=== PATIENT | male | born 1995 | race Caucasian/White ===

== ENCOUNTER → 2022-07-18 07:58 | Outpatient (BNVA) | payer MEDICARE, MEDICAID, SELFPAY | PROVIDERS: PCP Family Medicine; Visit Provider Podiatrist Foot & Ankle Surgery | DX: G60.0 Hereditary motor and sensory neuropathy (principal); L84 Corns and callosities | CPT/HCPCS: 11055; 99213 ==

== ENCOUNTER → 2022-12-31 10:27 | Outpatient (BNVA) | payer MEDICARE, SELFPAY | PROVIDERS: PCP Family Medicine; Visit Provider Nurse Practitioner Family | DX: M25.511 Pain in right shoulder (principal); S43.004A Unspecified dislocation of right shoulder joint, initial encounter; W18.09XA Striking against other object with subsequent fall, initial encounter | CPT/HCPCS: 73030 ==

== ENCOUNTER → 2023-01-07 09:22 | Outpatient (BNVA) | payer MEDICARE, MEDICAID, SELFPAY | PROVIDERS: PCP Family Medicine; Referring Provider Nurse Practitioner Family; Visit Provider Specialist | DX: S43.101A Unspecified dislocation of right acromioclavicular joint, initial encounter (principal); W18.09XA Striking against other object with subsequent fall, initial encounter | CPT/HCPCS: 99204 ==

== ENCOUNTER → 2023-01-22 09:50 | Outpatient (BNVA) | payer MEDICARE, MEDICAID, SELFPAY | PROVIDERS: PCP Family Medicine; Visit Provider Podiatrist Foot & Ankle Surgery | DX: L02.426 Furuncle of left lower limb; G60.0 Hereditary motor and sensory neuropathy; M79.671 Pain in right foot; L84 Corns and callosities | CPT/HCPCS: 99213 ==

== ENCOUNTER → 2023-02-12 09:31 | Outpatient (BNVA) | payer MEDICARE, MEDICAID, SELFPAY | PROVIDERS: PCP Family Medicine; Visit Provider Podiatrist Foot & Ankle Surgery | DX: L02.426 Furuncle of left lower limb (principal); L97.512 Non-pressure chronic ulcer of other part of right foot with fat layer exposed; G60.0 Hereditary motor and sensory neuropathy; L84 Corns and callosities | CPT/HCPCS: 11042 ==

== ENCOUNTER → 2023-04-01 09:02 | Outpatient (BNVA) | payer MEDICARE, MEDICAID, SELFPAY | PROVIDERS: PCP Family Medicine; Visit Provider Podiatrist Foot & Ankle Surgery | DX: L84 Corns and callosities (principal); L97.512 Non-pressure chronic ulcer of other part of right foot with fat layer exposed; G60.0 Hereditary motor and sensory neuropathy | CPT/HCPCS: 99213 ==

== ENCOUNTER 2023-04-30 10:08 | Outpatient (CLI) | payer MEDICARE, MEDICAID, SELFPAY | END 2023-04-30 10:09 | disposition home or self-care (01) | LOC: SPT 10:09 | PROVIDERS: PCP Family Medicine; Visit Provider Podiatrist Foot & Ankle Surgery | DX: Z46.89 Encounter for fitting and adjustment of other specified devices (principal); L97.512 Non-pressure chronic ulcer of other part of right foot with fat layer exposed; L84 Corns and callosities; G60.0 Hereditary motor and sensory neuropathy | CPT/HCPCS: 97760; 99213; L4361 ==

== ENCOUNTER → 2023-05-09 08:06 | Outpatient (BNVA) | payer MEDICARE, MEDICAID, SELFPAY | PROVIDERS: PCP Family Medicine; Visit Provider Podiatrist Foot & Ankle Surgery | DX: L84 Corns and callosities (principal); L97.512 Non-pressure chronic ulcer of other part of right foot with fat layer exposed; G60.0 Hereditary motor and sensory neuropathy; M79.671 Pain in right foot | CPT/HCPCS: 99213 ==

== ENCOUNTER → 2023-06-13 15:08 | Outpatient (BNVA) | payer MEDICARE, MEDICAID, SELFPAY | PROVIDERS: PCP Family Medicine; Visit Provider Podiatrist Foot & Ankle Surgery | DX: L97.512 Non-pressure chronic ulcer of other part of right foot with fat layer exposed (principal); L84 Corns and callosities; G60.0 Hereditary motor and sensory neuropathy | CPT/HCPCS: 11042; A6219 ==

== ENCOUNTER → 2023-07-02 09:23 | Outpatient (BNVA) | payer MEDICARE, MEDICAID, SELFPAY | PROVIDERS: PCP Family Medicine; Visit Provider Podiatrist Foot & Ankle Surgery | DX: L97.512 Non-pressure chronic ulcer of other part of right foot with fat layer exposed (principal); L84 Corns and callosities; G60.0 Hereditary motor and sensory neuropathy | CPT/HCPCS: 99213 ==

== ENCOUNTER → 2023-07-08 13:06 | Outpatient (BNVA) | payer MEDICARE, MEDICAID, SELFPAY | PROVIDERS: PCP Family Medicine; Visit Provider Nurse Practitioner Family | DX: I96 Gangrene, not elsewhere classified (principal); L97.512 Non-pressure chronic ulcer of other part of right foot with fat layer exposed; L97.422 Non-pressure chronic ulcer of left heel and midfoot with fat layer exposed | CPT/HCPCS: 11042; 99203 ==

== ENCOUNTER → 2023-07-15 13:28 | Outpatient (BNVA) | payer MEDICARE, MEDICAID, SELFPAY | PROVIDERS: PCP Family Medicine; Visit Provider Nurse Practitioner Family | DX: I96 Gangrene, not elsewhere classified; L97.425 Non-pressure chronic ulcer of left heel and midfoot with muscle involvement without evidence of necrosis; L97.412 Non-pressure chronic ulcer of right heel and midfoot with fat layer exposed | CPT/HCPCS: 11042; 11043; 87070; 87077; 87176; 87186; 87205; 99212; A6251 ==

== ENCOUNTER → 2023-07-22 13:34 | Outpatient (BNVA) | payer MEDICARE, MEDICAID, SELFPAY | PROVIDERS: PCP Family Medicine; Visit Provider Nurse Practitioner Family | DX: I96 Gangrene, not elsewhere classified (principal); L97.411 Non-pressure chronic ulcer of right heel and midfoot limited to breakdown of skin; L97.425 Non-pressure chronic ulcer of left heel and midfoot with muscle involvement without evidence of necrosis | CPT/HCPCS: 11043; 97597 ==

== ENCOUNTER → 2023-07-29 13:04 | Outpatient (BNVA) | payer MEDICARE, MEDICAID, SELFPAY | PROVIDERS: PCP Family Medicine; Visit Provider Nurse Practitioner Family | DX: I96 Gangrene, not elsewhere classified (principal); L97.422 Non-pressure chronic ulcer of left heel and midfoot with fat layer exposed; Z09 Encounter for follow-up examination after completed treatment for conditions other than malignant neoplasm | CPT/HCPCS: 11043; A6210; A6212 ==

== ENCOUNTER → 2023-08-26 13:02 | Outpatient (BNVA) | payer MEDICARE, MEDICAID, SELFPAY | PROVIDERS: PCP Family Medicine; Visit Provider Nurse Practitioner Family | DX: I96 Gangrene, not elsewhere classified (principal); L97.412 Non-pressure chronic ulcer of right heel and midfoot with fat layer exposed; L97.422 Non-pressure chronic ulcer of left heel and midfoot with fat layer exposed; G90.50 Complex regional pain syndrome I, unspecified | CPT/HCPCS: 11042; A6210 ==

== ENCOUNTER → 2023-09-12 08:06 | Outpatient (BNVA) | payer MEDICARE, MEDICAID, SELFPAY | PROVIDERS: PCP Family Medicine; Visit Provider Podiatrist Foot & Ankle Surgery | DX: L84 Corns and callosities (principal); G60.0 Hereditary motor and sensory neuropathy | CPT/HCPCS: 99213 ==

== ENCOUNTER → 2023-09-16 12:57 | Outpatient (BNVA) | payer MEDICARE, MEDICAID, SELFPAY | PROVIDERS: PCP Family Medicine; Visit Provider Nurse Practitioner Family | DX: I96 Gangrene, not elsewhere classified (principal); L97.421 Non-pressure chronic ulcer of left heel and midfoot limited to breakdown of skin; Z09 Encounter for follow-up examination after completed treatment for conditions other than malignant neoplasm | CPT/HCPCS: 97597; A6021 ==

== ENCOUNTER → 2023-09-23 13:01 | Outpatient (BNVA) | payer MEDICARE, MEDICAID, SELFPAY | PROVIDERS: PCP Family Medicine; Visit Provider Nurse Practitioner Family | DX: L97.422 Non-pressure chronic ulcer of left heel and midfoot with fat layer exposed (principal) | CPT/HCPCS: 11042; A6210 ==

== ENCOUNTER → 2023-09-30 12:50 | Outpatient (BNVA) | payer MEDICARE, MEDICAID, SELFPAY | PROVIDERS: PCP Family Medicine; Visit Provider Nurse Practitioner Family | DX: L97.425 Non-pressure chronic ulcer of left heel and midfoot with muscle involvement without evidence of necrosis (principal) | CPT/HCPCS: 11043; A6210 ==

== ENCOUNTER → 2023-10-14 12:55 | Outpatient (BNVA) | payer MEDICARE, MEDICAID, SELFPAY | PROVIDERS: PCP Family Medicine; Visit Provider Nurse Practitioner Family | DX: I96 Gangrene, not elsewhere classified (principal); L97.421 Non-pressure chronic ulcer of left heel and midfoot limited to breakdown of skin | CPT/HCPCS: 97597; A6210 ==

== ENCOUNTER → 2023-10-21 12:51 | Outpatient (BNVA) | payer MEDICARE, MEDICAID, SELFPAY | PROVIDERS: PCP Family Medicine; Visit Provider Nurse Practitioner Family | DX: L97.425 Non-pressure chronic ulcer of left heel and midfoot with muscle involvement without evidence of necrosis (principal) | CPT/HCPCS: 11043; A6210 ==

== ENCOUNTER → 2023-10-28 13:39 | Outpatient (BNVA) | payer MEDICARE, MEDICAID, SELFPAY | PROVIDERS: PCP Family Medicine; Visit Provider Nurse Practitioner Family | DX: L97.421 Non-pressure chronic ulcer of left heel and midfoot limited to breakdown of skin (principal); G90.50 Complex regional pain syndrome I, unspecified | CPT/HCPCS: 97597; A6210 ==

== ENCOUNTER → 2023-11-04 13:06 | Outpatient (BNVA) | payer MEDICARE, MEDICAID, SELFPAY | PROVIDERS: PCP Family Medicine; Visit Provider Nurse Practitioner Family | DX: L97.321 Non-pressure chronic ulcer of left ankle limited to breakdown of skin (principal) | CPT/HCPCS: 97597; A6210 ==

== ENCOUNTER → 2023-11-11 10:19 | Outpatient (BNVA) | payer MEDICARE, MEDICAID, SELFPAY | PROVIDERS: PCP Family Medicine; Visit Provider Nurse Practitioner Family | DX: L97.422 Non-pressure chronic ulcer of left heel and midfoot with fat layer exposed (principal) | CPT/HCPCS: 15271; A6206; A6250 ==

== ENCOUNTER → 2023-11-18 10:49 | Outpatient (BNVA) | payer MEDICARE, MEDICAID, SELFPAY | PROVIDERS: PCP Family Medicine; Visit Provider Thoracic Surgery (Cardiothoracic Vascular Surgery) | DX: I96 Gangrene, not elsewhere classified (principal); L97.421 Non-pressure chronic ulcer of left heel and midfoot limited to breakdown of skin | CPT/HCPCS: 15275; Q4186 ==

== ENCOUNTER → 2023-12-02 11:12 | Outpatient (BNVA) | payer MEDICARE, MEDICAID, SELFPAY | PROVIDERS: PCP Family Medicine; Visit Provider Thoracic Surgery (Cardiothoracic Vascular Surgery) | DX: L97.421 Non-pressure chronic ulcer of left heel and midfoot limited to breakdown of skin (principal); G62.9 Polyneuropathy, unspecified | CPT/HCPCS: 97597 ==

== ENCOUNTER → 2023-12-09 10:38 | Outpatient (BNVA) | payer MEDICARE, MEDICAID, SELFPAY | PROVIDERS: PCP Family Medicine; Visit Provider Thoracic Surgery (Cardiothoracic Vascular Surgery) | DX: L97.421 Non-pressure chronic ulcer of left heel and midfoot limited to breakdown of skin (principal); G62.9 Polyneuropathy, unspecified | CPT/HCPCS: 97597 ==

== ENCOUNTER → 2023-12-16 10:14 | Outpatient (BNVA) | payer MEDICARE, MEDICAID, SELFPAY | PROVIDERS: PCP Family Medicine; Visit Provider Thoracic Surgery (Cardiothoracic Vascular Surgery) | DX: Z09 Encounter for follow-up examination after completed treatment for conditions other than malignant neoplasm (principal); Z87.2 Personal history of diseases of the skin and subcutaneous tissue | CPT/HCPCS: 99212 ==

== ENCOUNTER → 2024-01-16 07:54 | Outpatient (BNVA) | payer MEDICARE, MEDICAID, SELFPAY | PROVIDERS: PCP Family Medicine; Visit Provider Thoracic Surgery (Cardiothoracic Vascular Surgery) | DX: Z09 Encounter for follow-up examination after completed treatment for conditions other than malignant neoplasm (principal); Z87.2 Personal history of diseases of the skin and subcutaneous tissue | CPT/HCPCS: 99212 ==

== ENCOUNTER → 2024-04-15 07:54 | Outpatient (BNVA) | payer MEDICARE, MEDICAID, SELFPAY | PROVIDERS: PCP Family Medicine; Visit Provider Thoracic Surgery (Cardiothoracic Vascular Surgery) | DX: Z09 Encounter for follow-up examination after completed treatment for conditions other than malignant neoplasm (principal); Z87.2 Personal history of diseases of the skin and subcutaneous tissue | CPT/HCPCS: 99213 ==

== ENCOUNTER → 2024-04-29 11:07 | Outpatient (BNVA) | payer MEDICARE, MEDICAID, SELFPAY | PROVIDERS: PCP Family Medicine; Visit Provider Podiatrist Foot & Ankle Surgery | DX: M79.671 Pain in right foot (principal); L02.426 Furuncle of left lower limb; M79.89 Other specified soft tissue disorders; L84 Corns and callosities; G60.0 Hereditary motor and sensory neuropathy | CPT/HCPCS: 73630; 99213 ==

== ENCOUNTER 2024-05-15 10:38 | Outpatient (CLI) | payer OTHER, MEDICAID, SELFPAY ==
--- NOTE | 2024-05-15 11:00 | MR_ITS ---
WS: [id number] MRI LEFT FOOT WITH AND WITHOUT CONTRAST. COMPARISON: Radiograph 04/29/2024 Multiplanar, multisequence imaging is performed with and without contrast. MultiHance 20 mL. Prior screw fixation of the first IP joint. Palpable marker corresponds to a well-circumscribed cystic mass on the T1 and T2 sequences. There is peripheral enhancement of the mass. Lobulated mass extends over a length of 2.6 cm. Maximum transvers e diameter 1.2 cm. Mass is inseparable and extends between the extensor digitorum longus and the exte nsor hallucis longus tendons with splaying. Slightly greater contact upon the extensor hallucis longu s tendon and most consistent with a ganglion. There is mild edema proximal of this lobulated cystic m ass along the dorsal surface of the foot. Normal tarsometatarsal alignment. Lisfranc ligament is normal. No fractures or bone marrow signal abn ormality. The peroneus brevis and longus tendons as visualized through the midfoot are normal. Normal extensor tendons. MR/MR foot LT wo/w con [id number] IMPRESSION: 1. Lobulated cystic mass with peripheral enhancement centered between the exte nsor digitorum longus and extensor hallucis longus tendons at the level of the midfoot. Lobulated mass measures 2.6 cm in length by 1.2 cm in diameter. This i s most consistent with a ganglion. Most closely associated with the extensor laird llucis longus tendon. 2. Mild soft tissue edema in the tendons proximal to the ganglion. 3. No additional mass. No marrow edema or fracture.
== END 2024-05-15 10:39 | disposition home or self-care (01) ==
LOC: RAD 10:43
PROVIDERS: PCP Family Medicine; Visit Provider Podiatrist Foot & Ankle Surgery
DX: R22.42 Localized swelling, mass and lump, left lower limb (principal)
CPT/HCPCS: 73720